=== PATIENT | male | born 1930 | race Caucasian/White ===

== ENCOUNTER 2016-05-27 15:08 | Emergency (ER) | payer OTHER ==
[2016-05-27] MEDS ORDERED: ONDANSETRON HCL IV 4 MG/2 ML VIAL IV ONE (15:56)
[2016-05-27] MEDS ORDERED: HYDROMORPHONE HCL 1 MG/ML CPJ IVP ONE (15:56)
[2016-05-27 16:17] LABS: HEMATOCRIT 39.8 % (42.0-52.0); HEMOGLOBIN 12.5 gm/dl (14.0-18.0); MEAN CELL VOLUME 97.5 fl (81-97); MEAN CORPUSCULAR HEMOGLOBIN 30.6 pg (27-33); MEAN CORPUSCULAR HGB CONC 31.4 g/dl (32-36); MEAN PLATELET VOLUME 10.5 fl (7.4-10.4); PLATELET COUNT 212 K/uL (130-400); RED BLOOD COUNT 4.08 M/uL (4.40-5.70); RED CELL DISTRIBUTION WIDTH 13.4 % (11.5-14.5); WHITE BLOOD COUNT W/O DIFF 4.5 K/uL (4.2-12.2)
[2016-05-27 16:28] LABS: ANION GAP 14.8 (7-16); CARBON DIOXIDE 26.2 mmol/L (22-30); CREATININE 1.6 mg/dL (0.66-1.25)
[2016-05-27 17:05] LABS: URINE APPEARANCE CLEAR; URINE BILIRUBIN NEGATIVE (NEGATIVE); URINE BLOOD TRACE-I (NEGATIVE); URINE COLOR YELLOW; URINE GLUCOSE (UA) NEGATIVE (NEGATIVE); URINE KETONE TRACE (NEGATIVE); URINE LEUKOCYTE ESTERASE NEGATIVE (NEGATIVE); URINE NITRITE NEGATIVE (NEGATIVE); URINE PROTEIN TRACE (NEGATIVE)
[2016-05-27 17:09] LABS: URINE BACTERIA FEW; URINE EPITHELIAL CELLS 0 - 2 (FEW); URINE RBC 0 - 2 (NONE SEEN); URINE WBC 0 - 2 (0-2/hpf)
--- NOTE | 2016-05-27 17:53 | Emergency Department Record ---
History of Present Illness - General Chief Complaint: Abdominal Pain Stated Complaint: stomach pains Time Seen by Provider: 05/27/16 15:52 Source: Patient, Family Mode of Arrival: Ambulatory Limitations: No limitations - History of Present Illness Initial Comments: pt came in with significant abd pain, n/v x 1. pt has a hx of aneurysm repair and remaining aneurysm. MD Complaint: Abdominal pain Onset/Timin -: Days(s) Location: Epigastric, RUQ, RLQ Severity: Severe Quality: Sharp Consistency: Constant Improves With: Nothing Worsens With: Nothing Associated Symptoms: Nausea, Vomiting - Related Data Home Medications Medication Instructions Recorded Confirmed Last Taken Aspirin [Ecotrin] 81 mg PO DAILY 05/27/16 05/27/16 Unknown Losartan Potassium [Cozaar] 50 mg PO DAILY 05/27/16 05/27/16 Unknown Allergies Allergy/AdvReac Type Severity Reaction Status Date / Time No Known Drug Allergies Allergy Verified 05/27/16 15:35 Travel Screening - Travel/Exposure Within Last 30 Days Have you traveled within the last 30 days?: No Review of Systems Reviewed: No additional complaints except as noted below Constitutional: Reports: As per HPI. Denies: Chills, Fever, Malaise, Night sweats, Weakness, Weight change Eyes: Reports: As per HPI. Denies: Eye discharge, Eye pain, Photophobia, Vision change ENT: Reports: As per HPI. Denies: Congestion, Dental pain, Ear pain, Epistaxis , Hearing loss, Throat pain Respiratory: Reports: As per HPI. Denies: Cough, Dyspnea, Hemoptysis, Stridor, Wheezes Cardiovascular: Reports: As per HPI. Denies: Arrhythmia, Chest pain, Dyspnea on exertion, Edema, Murmurs, Orthopnea, Palpitations, Paroxysmal nocturnal dyspnea, Rheumatic Fever, Syncope Endocrine: Reports: As per HPI. Denies: Fatigue, Heat or cold intolerance, Polydipsia, Polyuria Gastrointestinal: Reports: As per HPI. Denies: Abdominal pain, Constipation, Diarrhea, Hematemesis, Hematochezia, Melena, Nausea, Vomiting Genitourinary: Reports: As per HPI. Denies: Dysuria, Frequency, Hematuria, Incontinence, Retention, Testicular pain, Testicular mass, Urgency Musculoskeletal: Reports: As per HPI. Denies: Arthralgia, Back pain, Gout, Joint swelling, Myalgia, Neck pain Skin: Reports: As per HPI. Denies: Bruising, Change in color, Change in hair/ nails, Lesions, Pruritus, Rash Neurological: Reports: As per HPI. Denies: Abnormal gait, Confusion, Headache, Numbness, Paresthesias, Seizure, Tingling, Tremors, Vertigo, Weakness Psychiatric: Reports: As per HPI. Denies: Anxiety, Auditory hallucinations, Depression, Homicidal thoughts, Suicidal thoughts, Visual hallucinations Hematological/Lymphatic: Reports: As per HPI. Denies: Anemia, Blood Clots, Easy bleeding, Easy bruising, Swollen glands Past Medical History - SOCIAL HISTORY Smoking Status: Former smoker Alcohol Use: None Drug Use: None - RESPIRATORY Hx Respiratory Disorders: No - CARDIOVASCULAR Hx Cardio Disorders: Yes Hx Hypertension: Yes - NEURO Hx Neuro Disorders: Yes Hx Dizziness: Yes - GI Hx GI Disorders: Yes Comment:: anuerysm - Hx Genitourinary Disorders: No - ENDOCRINE Hx Endocrine Disorders: No - MUSCULOSKELETAL Hx Musculoskeletal Disorders: Yes - PSYCH Hx Psych Problems: No - HEMATOLOGY/ONCOLOGY Hx Hematology/Oncology Disorders: No Family Medical History Any Significant Family History?: No Physical Exam - General General Appearance: Alert, Oriented x3, Cooperative, Moderate distress - Head Head exam: Normal inspection - Eye Eye exam: Normal appearance, PERRL, EOMI Pupils: Normal accommodation - ENT ENT exam: Normal exam, Mucous membranes moist, Normal external ear exam, Normal orophraynx Ear exam: Normal external inspection. negative: External canal tenderness Nasal Exam: Normal inspection. negative: Discharge, Sinus tenderness Mouth exam: Normal external inspection, Tongue normal Teeth exam: Normal inspection. negative: Dental caries Throat exam: Normal inspection. negative: Tonsillar erythema, Tonsillar exudate - Neck Neck exam: Normal inspection, Full ROM. negative: Tenderness - Respiratory Respiratory exam: Normal lung sounds bilaterally. negative: Respiratory distress - Cardiovascular Cardiovascular Exam: Normal rhythm, Normal heart sounds, Tachycardia - GI/Abdominal GI/Abdominal exam: Soft, Normal bowel sounds. negative: Tenderness - Rectal Rectal exam: Deferred - exam: Deferred - Extremities Extremities exam: Normal inspection, Full ROM, Normal capillary refill. negative: Tenderness - Back Back exam: Reports: Normal inspection, Full ROM. Denies: Muscle spasm, Rash noted, Tenderness - Neurological Neurological exam: Alert, Normal gait, Oriented X3, Reflexes normal - Psychiatric Psychiatric exam: Normal affect, Normal mood - Skin Skin exam: Dry, Intact, Normal color, Warm Course Vital Signs 05/27/16 15:27 Temperature 98.4 F Pulse Rate 125 H Respiratory 32 H Rate Blood Pressure 179/117 Pulse Ox 97 - Reevaluation(s) Reevaluation #1: 05/27/16 18:54 pt feels better 05/27/16 18:54 Medical Decision Making - Lab Data Result diagrams: 05/27/16 15:40 05/27/16 15:40 Lab Results 05/27/16 05/27/16 05/27/16 Range/Units 15:40 15:40 16:30 WBC 4.5 (4.2-12.2) K/uL RBC 4.08 L (4.40-5.70) M/uL Hgb 12.5 L (14.0-18.0) gm/dl Hct 39.8 L (42.0-52.0) % MCV 97.5 H (81-97) fl MCH 30.6 (27-33) pg MCHC 31.4 L (32-36) g/dl RDW 13.4 (11.5-14.5) % Plt Count 212 (130-400) K/uL MPV 10.5 H (7.4-10.4) fl Neutrophils % 94.0 H (47-80) % Lymphocytes % 5.0 L (16-45) % Monocytes % 1.0 (0-9) % Eosinophils % Not Reportable Basophils % Not Reportable Sodium 141 (136-145) mmol/L Potassium 4.3 (3.5-5.1) mmol/L Chloride 100 (98-107) mmol/L Carbon Dioxide 26.2 (22-30) mmol/L Anion Gap 14.8 (7-16) BUN 36 H (9-20) mg/dL Creatinine 1.6 H (0.66-1.25) mg/dL Estimated GFR 44 ml/min Random Glucose 146 H (70-110) mg/dL Lactic Acid 0.9 (0.7-2.1) mmol/L Calcium 9.1 (8.5-10.1) mg/dL Urine Color Urine Appearance Urine pH (5.0-8.0) Ur Specific [place] (1.002-1.030) Urine Protein (NEGATIVE) Urine Glucose (UA) (NEGATIVE) Urine Ketones (NEGATIVE) Urine Blood (NEGATIVE) Urine Nitrite (NEGATIVE) Urine Bilirubin (NEGATIVE) Urine Urobilinogen (0.20 - 1.00) E.U./dL Ur Leukocyte Esterase (NEGATIVE) Urine RBC (NONE SEEN) Urine WBC (0-2/hpf) Ur Epithelial Cells (FEW) Urine Bacteria 05/27/16 Range/Units 16:45 WBC (4.2-12.2) K/uL RBC (4.40-5.70) M/uL Hgb (14.0-18.0) gm/dl Hct (42.0-52.0) % MCV (81-97) fl MCH (27-33) pg MCHC (32-36) g/dl RDW (11.5-14.5) % Plt Count (130-400) K/uL MPV (7.4-10.4) fl Neutrophils % (47-80) % Lymphocytes % (16-45) % Monocytes % (0-9) % Eosinophils % Basophils % Sodium (136-145) mmol/L Potassium (3.5-5.1) mmol/L Chloride (98-107) mmol/L Carbon Dioxide (22-30) mmol/L Anion Gap (7-16) BUN (9-20) mg/dL Creatinine (0.66-1.25) mg/dL Estimated GFR ml/min Random Glucose (70-110) mg/dL Lactic Acid (0.7-2.1) mmol/L Calcium (8.5-10.1) mg/dL Urine Color Yellow Urine Appearance Clear Urine pH 6.0 (5.0-8.0) Ur Specific [place] 1.015 (1.002-1.030) Urine Protein Trace H (NEGATIVE) Urine Glucose (UA) Negative (NEGATIVE) Urine Ketones Trace H (NEGATIVE) Urine Blood Trace-i (NEGATIVE) Urine Nitrite Negative (NEGATIVE) Urine Bilirubin Negative (NEGATIVE) Urine Urobilinogen 1.0 (0.20 - 1.00) E.U./dL Ur Leukocyte Esterase Negative (NEGATIVE) Urine RBC 0 - 2 (NONE SEEN) Urine WBC 0 - 2 (0-2/hpf) Ur Epithelial Cells 0 - 2 (FEW) Urine Bacteria Few Disposition Disposition: Discharge Clinical Impression: Abdominal pain Qualifiers: Abdominal location: generalized Qualified Code(s): R10.84 - Generalized abdominal pain Disposition: Home, Self-Care Condition: (1) Good Instructions: Abdominal Pain (ED) Additional Instructions: follow up with [facility]. call tomorrow. return sooner if worse Forms: Patient Portal Access
[2016-05-27] MEDS ORDERED: SODIUM CHLORIDE 0.9% 500 ML IV ONE (18:20)
--- NOTE | 2016-05-27 19:25 | Emergency Department Record ---
History of Present Illness - General Chief Complaint: Abdominal Pain Stated Complaint: stomach pains Time Seen by Provider: 05/27/16 15:52 Source: Patient, Family Mode of Arrival: Ambulatory Limitations: No limitations - History of Present Illness MD Complaint: Abdominal pain Onset/Timin -: Days(s) Location: Epigastric, RUQ, RLQ Severity: Severe Quality: Sharp Consistency: Constant Improves With: Nothing Worsens With: Nothing Associated Symptoms: Nausea, Vomiting - Related Data Home Medications Medication Instructions Recorded Confirmed Last Taken Aspirin [Ecotrin] 81 mg PO DAILY 05/27/16 05/27/16 Unknown Losartan Potassium [Cozaar] 50 mg PO DAILY 05/27/16 05/27/16 Unknown Allergies Allergy/AdvReac Type Severity Reaction Status Date / Time No Known Drug Allergies Allergy Verified 05/27/16 15:35 Travel Screening - Travel/Exposure Within Last 30 Days Have you traveled within the last 30 days?: No Review of Systems Constitutional: Reports: As per HPI. Denies: Chills, Fever, Malaise, Night sweats, Weakness, Weight change Eyes: Reports: As per HPI. Denies: Eye discharge, Eye pain, Photophobia, Vision change ENT: Reports: As per HPI. Denies: Congestion, Dental pain, Ear pain, Epistaxis , Hearing loss, Throat pain Respiratory: Reports: As per HPI. Denies: Cough, Dyspnea, Hemoptysis, Stridor, Wheezes Cardiovascular: Reports: As per HPI. Denies: Arrhythmia, Chest pain, Dyspnea on exertion, Edema, Murmurs, Orthopnea, Palpitations, Paroxysmal nocturnal dyspnea, Rheumatic Fever, Syncope Endocrine: Reports: As per HPI. Denies: Fatigue, Heat or cold intolerance, Polydipsia, Polyuria Gastrointestinal: Reports: As per HPI. Denies: Abdominal pain, Constipation, Diarrhea, Hematemesis, Hematochezia, Melena, Nausea, Vomiting Genitourinary: Reports: As per HPI. Denies: Dysuria, Frequency, Hematuria, Incontinence, Retention, Testicular pain, Testicular mass, Urgency Musculoskeletal: Reports: As per HPI. Denies: Arthralgia, Back pain, Gout, Joint swelling, Myalgia, Neck pain Skin: Reports: As per HPI. Denies: Bruising, Change in color, Change in hair/ nails, Lesions, Pruritus, Rash Neurological: Reports: As per HPI. Denies: Abnormal gait, Confusion, Headache, Numbness, Paresthesias, Seizure, Tingling, Tremors, Vertigo, Weakness Psychiatric: Reports: As per HPI. Denies: Anxiety, Auditory hallucinations, Depression, Homicidal thoughts, Suicidal thoughts, Visual hallucinations Hematological/Lymphatic: Reports: As per HPI. Denies: Anemia, Blood Clots, Easy bleeding, Easy bruising, Swollen glands Past Medical History - SOCIAL HISTORY Smoking Status: Former smoker Alcohol Use: None Drug Use: None - RESPIRATORY Hx Respiratory Disorders: No - CARDIOVASCULAR Hx Cardio Disorders: Yes Hx Hypertension: Yes - NEURO Hx Neuro Disorders: Yes Hx Dizziness: Yes - GI Hx GI Disorders: Yes Comment:: anuerysm - Hx Genitourinary Disorders: No - ENDOCRINE Hx Endocrine Disorders: No - MUSCULOSKELETAL Hx Musculoskeletal Disorders: Yes - PSYCH Hx Psych Problems: No - HEMATOLOGY/ONCOLOGY Hx Hematology/Oncology Disorders: No Family Medical History Any Significant Family History?: No Physical Exam - General Limitations: No limitations Course Vital Signs 05/27/16 05/27/16 15:27 19:11 Temperature 98.4 F 97.4 F L Pulse Rate 125 H 115 H Respiratory 32 H 20 Rate Blood Pressure 179/117 121/68 Pulse Ox 97 98 - Reevaluation(s) Reevaluation #1: 05/27/16 19:21 contrast was not used since gfr is 44. ct d/w radiologist, no hematoma, no free fluid. pts pain is resolved. improved bp and improved hr. pt recd iv fluids and is drinking fluids. pt wants to go home Medical Decision Making - Lab Data Result diagrams: 05/27/16 15:40 05/27/16 15:40 Lab Results 05/27/16 05/27/16 05/27/16 Range/Units 15:40 15:40 16:30 WBC 4.5 (4.2-12.2) K/uL RBC 4.08 L (4.40-5.70) M/uL Hgb 12.5 L (14.0-18.0) gm/dl Hct 39.8 L (42.0-52.0) % MCV 97.5 H (81-97) fl MCH 30.6 (27-33) pg MCHC 31.4 L (32-36) g/dl RDW 13.4 (11.5-14.5) % Plt Count 212 (130-400) K/uL MPV 10.5 H (7.4-10.4) fl Neutrophils % 94.0 H (47-80) % Lymphocytes % 5.0 L (16-45) % Monocytes % 1.0 (0-9) % Eosinophils % Not Reportable Basophils % Not Reportable Sodium 141 (136-145) mmol/L Potassium 4.3 (3.5-5.1) mmol/L Chloride 100 (98-107) mmol/L Carbon Dioxide 26.2 (22-30) mmol/L Anion Gap 14.8 (7-16) BUN 36 H (9-20) mg/dL Creatinine 1.6 H (0.66-1.25) mg/dL Estimated GFR 44 ml/min Random Glucose 146 H (70-110) mg/dL Lactic Acid 0.9 (0.7-2.1) mmol/L Calcium 9.1 (8.5-10.1) mg/dL Troponin I (0.00-0.034) ng/mL Urine Color Urine Appearance Urine pH (5.0-8.0) Ur Specific [place] (1.002-1.030) Urine Protein (NEGATIVE) Urine Glucose (UA) (NEGATIVE) Urine Ketones (NEGATIVE) Urine Blood (NEGATIVE) Urine Nitrite (NEGATIVE) Urine Bilirubin (NEGATIVE) Urine Urobilinogen (0.20 - 1.00) E.U./dL Ur Leukocyte Esterase (NEGATIVE) Urine RBC (NONE SEEN) Urine WBC (0-2/hpf) Ur Epithelial Cells (FEW) Urine Bacteria 05/27/16 05/27/16 Range/Units 16:30 16:45 WBC (4.2-12.2) K/uL RBC (4.40-5.70) M/uL Hgb (14.0-18.0) gm/dl Hct (42.0-52.0) % MCV (81-97) fl MCH (27-33) pg MCHC (32-36) g/dl RDW (11.5-14.5) % Plt Count (130-400) K/uL MPV (7.4-10.4) fl Neutrophils % (47-80) % Lymphocytes % (16-45) % Monocytes % (0-9) % Eosinophils % Basophils % Sodium (136-145) mmol/L Potassium (3.5-5.1) mmol/L Chloride (98-107) mmol/L Carbon Dioxide (22-30) mmol/L Anion Gap (7-16) BUN (9-20) mg/dL Creatinine (0.66-1.25) mg/dL Estimated GFR ml/min Random Glucose (70-110) mg/dL Lactic Acid (0.7-2.1) mmol/L Calcium (8.5-10.1) mg/dL Troponin I < 0.012 (0.00-0.034) ng/mL Urine Color Yellow Urine Appearance Clear Urine pH 6.0 (5.0-8.0) Ur Specific [place] 1.015 (1.002-1.030) Urine Protein Trace H (NEGATIVE) Urine Glucose (UA) Negative (NEGATIVE) Urine Ketones Trace H (NEGATIVE) Urine Blood Trace-i (NEGATIVE) Urine Nitrite Negative (NEGATIVE) Urine Bilirubin Negative (NEGATIVE) Urine Urobilinogen 1.0 (0.20 - 1.00) E.U./dL Ur Leukocyte Esterase Negative (NEGATIVE) Urine RBC 0 - 2 (NONE SEEN) Urine WBC 0 - 2 (0-2/hpf) Ur Epithelial Cells 0 - 2 (FEW) Urine Bacteria Few Disposition Disposition: Discharge Clinical Impression: Renal insufficiency Abdominal pain Qualifiers: Abdominal location: generalized Qualified Code(s): R10.84 - Generalized abdominal pain Disposition: Home, Self-Care Condition: (1) Good Instructions: Abdominal Pain (ED) Additional Instructions: follow up with [facility]. call tomorrow. return sooner if worse Forms: Patient Portal Access
== END 2016-05-27 19:13 | disposition home or self-care (01) ==
LOC: ER 15:08
DX: N28.9 Disorder of kidney and ureter, unspecified (principal); R10.84 Generalized abdominal pain; R11.2 Nausea with vomiting, unspecified; I10 Essential (primary) hypertension; I71.4 Abdominal aortic aneurysm, without rupture; Z87.891 Personal history of nicotine dependence
CPT/HCPCS: 99283; 96374; 96375; 99284; 83605; 84484; 80048; 81001; 85027; 74176; 93005; 93010; J2405; J1170

== ENCOUNTER 2017-09-22 15:34 | Emergency (ER) | payer OTHER ==
[2017-09-22] MEDS ORDERED: ACETAMINOPHEN 1,000 MG/100 ML BTL IVPB ONE (15:59)
--- NOTE | 2017-09-22 16:06 | Emergency Department Record ---
History of Present Illness - General Chief complaint: Extremity Problem Stated complaint: LT ARM/PAIN AND BLEEDING FROM SURGERY Time Seen by Provider: 09/22/17 15:58 Source: Patient Mode of Arrival: Ambulatory Limitations: No limitations - History of Present Illness Initial comments: 87 yo male presents with left upper arm pain. The patient has ESRD. He has been on dialysis 2 months. He had surgery on Thursday at the [facility] in [place]. His paperwork states he had a left brachiobasilic vein transposition. He states he did not have any significant pain after surgery. Starting at 11am he developed pain in the left upper arm. No distal weakness, numbness, coolness. He noted swelling and bruising of the left upper arm as well. He had HD this morning at 6am. He has a dialysis port in the right subclavian. He can not contacted the number for his surgeon at the [facility] in [place]. No fevers. He had a small amount of blood on his shirt this afternoon. His PCP is in [place] as well as his liquor inspector and surgeon. He has one prior visit to the [facility] ED on the EMR. MD Complaint: Extremity pain, Extremity swelling Onset/Timin -: Days(s) Location: Left, Arm History of Same: No Severity scale (1-10): 10 Quality: Aching, Burning, Sharp Consistency: Constant Improves with: Nothing Worsens with: Exertion, Palpation Associated Symptoms: Denies other symptoms - Related Data Home Medications Medication Instructions Recorded Confirmed Last Taken Atorvastatin Calcium 80 mg PO DAILY 09/22/17 09/22/17 Unknown Carvedilol 25 mg PO BID 09/22/17 09/22/17 Unknown Isosorbide Mononitrate [Imdur] 60 mg PO DAILY 09/22/17 09/22/17 Unknown Nifedipine [Nifedipine ER] 30 mg PO DAILY 09/22/17 09/22/17 Unknown Previous Rx's Medication Instructions Recorded Magnesium Citrate 295 ml PO Q12H PRN #10 solution 09/22/17 Allergies Allergy/AdvReac Type Severity Reaction Status Date / Time No Known Drug Allergies Allergy Verified 05/27/16 15:35 Travel Screening - Travel/Exposure Within Last 30 Days Have you traveled within the last 30 days?: No Review of Systems Constitutional: Denies: Chills, Fever, Weakness Eyes: Denies: Eye discharge ENT: Denies: Congestion, Throat pain Respiratory: Denies: Cough Cardiovascular: Denies: Chest pain, Palpitations, Syncope Endocrine: Denies: Fatigue Gastrointestinal: Denies: Abdominal pain, Diarrhea, Nausea, Vomiting Genitourinary: Denies: Dysuria, Frequency, Hematuria Musculoskeletal: Denies: Arthralgia, Back pain, Myalgia Skin: Denies: Change in color Neurological: Denies: Headache, Numbness, Tingling, Tremors, Weakness Psychiatric: Denies: Anxiety Hematological/Lymphatic: Denies: Blood Clots, Easy bleeding, Easy bruising, Swollen glands Past Medical History - SOCIAL HISTORY Smoking Status: Former smoker - RESPIRATORY Hx Respiratory Disorders: No - CARDIOVASCULAR Hx Cardio Disorders: Yes Hx Hypertension: Yes - NEURO Hx Neuro Disorders: Yes Hx Dizziness: Yes - GI Hx GI Disorders: Yes Comment:: anuerysm - Hx Genitourinary Disorders: No - ENDOCRINE Hx Endocrine Disorders: No - MUSCULOSKELETAL Hx Musculoskeletal Disorders: Yes - PSYCH Hx Psych Problems: No - HEMATOLOGY/ONCOLOGY Hx Hematology/Oncology Disorders: No Family Medical History Any Significant Family History?: No Physical Exam - General General Appearance: Alert, Oriented x3, Cooperative, No acute distress Limitations: No limitations - Head Head exam: Atraumatic, Normal inspection - Eye Eye exam: Normal appearance. negative: Conjunctival injection - ENT ENT exam: Normal exam, Mucous membranes moist Ear exam: Normal external inspection Nasal Exam: Normal inspection Mouth exam: Normal external inspection - Neck Neck exam: Normal inspection, Full ROM. negative: Tenderness - Respiratory Respiratory exam: Normal lung sounds bilaterally. 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 - Neurological Neurological exam: Alert, Oriented X3 - Psychiatric Psychiatric exam: Normal affect, Normal mood - Skin Skin exam: Dry, Intact, Warm, Other (bruising of the upper arm on the left into the axilla.) Course Vital Signs 09/22/17 15:47 Temperature 98.2 F Pulse Rate 87 Respiratory 20 Rate Blood Pressure 174/87 Pulse Ox 97 - Reevaluation(s) Reevaluation #1: 09/22/17 16:30 The patient did not get any relief with the Ofirmev. He has a strong radial pulse, fixed wing aircraft flight engineer, sensation intact. Morphine ordered. 09/22/17 16:43 The labs were reviewed Hgb is 10.9 The Platelets were 106 CR is 3.5 09/22/17 16:57 K is 4.8 Medical Decision Making - Lab Data Result diagrams: 09/22/17 16:11 09/22/17 16:11 Disposition Disposition: Discharge Clinical Impression: Postoperative hematoma Qualifiers: Surgical complication system/body Area: circulatory system Procedure type: circulatory, unspecified Qualified Code(s): I97.638 - Postprocedural hematoma of a circulatory system organ or structure following other circulatory system procedure Disposition: Home, Self-Care Condition: (2) Stable Instructions: Hematoma (ED) Additional Instructions: Return to ED if your symptoms worsen or if you have any concerns. Magnesium Citrate as directed. Follow-up with your vascular surgeon in 1-3 days as directed. Prescriptions: Magnesium Citrate 295 ml PO Q12H PRN #10 solution PRN Reason: Constipation Forms: Patient Portal Access Time of Disposition: 21:00 Quality - Quality Measures Quality Measures: N/A - Blood Pressure Screening Does Patient Have Any of the Following: Active Dx of HTN Blood Pressure Classification: Hypertensive Reading Systolic Measurement: 194 Diastolic Measurement: 102 Screening for High Blood Pressure: Patient Exclusion, Hx of HTN [G9744]
[2017-09-22 16:19] LABS: HEMATOCRIT 35.9 % (42.0-52.0); HEMOGLOBIN 10.9 gm/dl (14.0-18.0); MEAN CELL VOLUME 106.2 fl (81-97); MEAN CORPUSCULAR HEMOGLOBIN 32.2 pg (27-33); MEAN CORPUSCULAR HGB CONC 30.4 g/dl (32-36); MEAN PLATELET VOLUME 10.7 fl (7.4-10.4); PLATELET COUNT 106 K/uL (130-400); RED BLOOD COUNT 3.38 M/uL (4.40-5.70); RED CELL DISTRIBUTION WIDTH 14.7 % (11.5-14.5); WHITE BLOOD COUNT W/O DIFF 8.1 K/uL (4.2-12.2)
[2017-09-22 16:28] LABS: CREATININE 3.5 mg/dL (0.7-1.2)
[2017-09-22] MEDS ORDERED: MORPHINE SULFATE 4MG/ML PREFILLED SYRINGE IVP ONE ×2 (16:30→19:26)
[2017-09-22 16:45] LABS: PARTIAL THROMBOPLASTIN TIME 25.7 SECONDS (24.5-39.1)
--- NOTE | 2017-09-22 19:21 | Emergency Department Record ---
History of Present Illness - General Chief complaint: Extremity Problem Stated complaint: LT ARM/PAIN AND BLEEDING FROM SURGERY Time Seen by Provider: 09/22/17 15:58 Source: Patient Mode of Arrival: Ambulatory Limitations: No limitations - History of Present Illness Onset/Timin -: Days(s) Location: Left, Arm History of Same: No Severity scale (1-10): 10 Quality: Aching, Burning, Sharp Consistency: Constant Improves with: Nothing Worsens with: Exertion, Palpation Associated Symptoms: Denies other symptoms - Related Data Home Medications Medication Instructions Recorded Confirmed Last Taken Atorvastatin Calcium 80 mg PO DAILY 09/22/17 09/22/17 Unknown Carvedilol 25 mg PO BID 09/22/17 09/22/17 Unknown Isosorbide Mononitrate [Imdur] 60 mg PO DAILY 09/22/17 09/22/17 Unknown Nifedipine [Nifedipine ER] 30 mg PO DAILY 09/22/17 09/22/17 Unknown Previous Rx's Medication Instructions Recorded Magnesium Citrate 295 ml PO Q12H PRN #10 solution 09/22/17 Allergies Allergy/AdvReac Type Severity Reaction Status Date / Time No Known Drug Allergies Allergy Verified 05/27/16 15:35 Travel Screening - Travel/Exposure Within Last 30 Days Have you traveled within the last 30 days?: No Review of Systems Constitutional: Denies: Chills, Fever, Weakness Eyes: Denies: Eye discharge ENT: Denies: Congestion, Throat pain Respiratory: Denies: Cough Cardiovascular: Denies: Chest pain, Palpitations, Syncope Endocrine: Denies: Fatigue Gastrointestinal: Denies: Abdominal pain, Diarrhea, Nausea, Vomiting Genitourinary: Denies: Dysuria, Frequency, Hematuria Musculoskeletal: Denies: Arthralgia, Back pain, Myalgia Skin: Denies: Change in color Neurological: Denies: Headache, Numbness, Tingling, Tremors, Weakness Psychiatric: Denies: Anxiety Hematological/Lymphatic: Denies: Blood Clots, Easy bleeding, Easy bruising, Swollen glands Past Medical History - SOCIAL HISTORY Smoking Status: Former smoker - RESPIRATORY Hx Respiratory Disorders: No - CARDIOVASCULAR Hx Cardio Disorders: Yes Hx Hypertension: Yes - NEURO Hx Neuro Disorders: Yes Hx Dizziness: Yes - GI Hx GI Disorders: Yes Comment:: anuerysm - Hx Genitourinary Disorders: No - ENDOCRINE Hx Endocrine Disorders: No - MUSCULOSKELETAL Hx Musculoskeletal Disorders: Yes - PSYCH Hx Psych Problems: No - HEMATOLOGY/ONCOLOGY Hx Hematology/Oncology Disorders: No Family Medical History Any Significant Family History?: No Physical Exam - General Limitations: No limitations Course Vital Signs 09/22/17 15:47 Temperature 98.2 F Pulse Rate 87 Respiratory 20 Rate Blood Pressure 174/87 Pulse Ox 97 - Reevaluation(s) Reevaluation #1: 09/22/17 19:19 US Left Upper Extremity: No DVT present 17 x 6 cm hematoma extending from axilla to elbow No acute bleeding present Re-examination demonstrates a good thrill to the fistula, strong distal radial pulse. vascular surgery was paged for consultation. 09/22/17 19:49 Vascular Surgery re-contacted for consultation. Reevaluation #2: 09/22/17 20:22 Case was discussed with Dr. Farris (on-call vascular surgery), recommends galen wrap and analgesia. Patient has [place] at home, concerned about taking the medication due to constipation previously. Patient does have Dulcolax and Miralax at home, would like magnesium citrate as well if needed. Dr. Farris will arrange for follow-up later this week. Patient and his daughter were updated on all results and the plan of care, no evidence for compartment syndrome of the upper arm or forearm on re-examination as well. Patient has 5/5/ maintenance specialist strength, denies numbness, tingling or weakness symptoms, and has strong distal radial pulse. Will place in galen-wrap with instructions for follow-up. Medical Decision Making - Lab Data Result diagrams: 09/22/17 16:11 09/22/17 16:11 Lab Results 09/22/17 09/22/17 09/22/17 Range/Units 16:11 16:11 16:11 WBC 8.1 (4.2-12.2) K/uL RBC 3.38 L (4.40-5.70) M/uL Hgb 10.9 L (14.0-18.0) gm/dl Hct 35.9 L (42.0-52.0) % MCV 106.2 H (81-97) fl MCH 32.2 (27-33) pg MCHC 30.4 L (32-36) g/dl RDW 14.7 H (11.5-14.5) % Plt Count 106 L (130-400) K/uL MPV 10.7 H (7.4-10.4) fl Neutrophils % 69.0 (47-80) % Eosinophils % Not Reportable Basophils % Not Reportable Lymphocytes 12.0 L (16-45) % Monocytes 12.0 H (0-9) % Eosinophil Count 7.0 H (0-6) % PT 11.0 (9.5-12.1) SECONDS INR 1.0 APTT 25.7 (24.5-39.1) SECONDS Sodium 142 (136-145) mmol/L Potassium 4.8 H (3.4-4.5) mmol/L Chloride 97 L (98-107) mmol/L Carbon Dioxide 29.0 (22-29) mmol/L Anion Gap 16.0 (7-16) BUN 34 H (8-23) mg/dL Creatinine 3.5 H (0.7-1.2) mg/dL Estimated GFR 18 mL/min Random Glucose 100 (74-109) mg/dL Calcium 8.7 L (8.8-10.2) mg/dL Disposition Disposition: Discharge Clinical Impression: Postoperative hematoma Qualifiers: Surgical complication system/body Area: circulatory system Procedure type: circulatory, unspecified Qualified Code(s): I97.638 - Postprocedural hematoma of a circulatory system organ or structure following other circulatory system procedure Disposition: Home, Self-Care Condition: (2) Stable Instructions: Hematoma (ED) Additional Instructions: Return to ED if your symptoms worsen or if you have any concerns. Magnesium Citrate as directed. Follow-up with your vascular surgeon in 1-3 days as directed. Prescriptions: Magnesium Citrate 295 ml PO Q12H PRN #10 solution PRN Reason: Constipation Forms: Patient Portal Access Time of Disposition: 20:28 Quality - Quality Measures Quality Measures: N/A - Blood Pressure Screening Does Patient Have Any of the Following: Active Dx of HTN Blood Pressure Classification: Pre-Hypertensive BP Reading Systolic Measurement: 174 Diastolic Measurement: 87 Screening for High Blood Pressure: Patient Exclusion, Hx of HTN [G9744]
--- NOTE | 2017-09-24 08:24 | US VENOUS DOPPLER REPORT ---
EXAM: LEFT UPPER EXTREMITY VENOUS DOPPLER ULTRASOUND HISTORY: LEFT UPPER EXTREMITY PAIN AND SWELLING. HISTORY OF LEFT UPPER EXTREMITY VASCULAR SURGERY FOR DIALYSIS FISTULA PLACEMENT ON THURSDAY. BRUISING, PAIN, AND SWELLING SINCE AFTER DIALYSIS THIS MORNING. TECHNIQUE: Duplex Doppler evaluation of the left upper extremity deep venous system was performed in the standard fashion. Seth scale, color Doppler, and Duplex Doppler imaging with spectral analysis was performed. FINDINGS: There is a large hematoma within the left arm extending along the course of the basilic vein from the axilla to near the elbow. This measures 16.9 x 5.7 x 5.7 cm. No active bleeding is identified into the hematoma. There is no visible pseudoaneurysm. The external iliac vein, subclavian vein, axillary vein, brachial veins, and basilic vein demonstrate normal flow, phasicity, and compression. There is no evidence for deep venous thrombosis within the left upper extremity. The forearm veins are suboptimally visualized. IMPRESSION: 1. SUBOPTIMAL VISUALIZATION OF THE FOREARM VEINS. 2. LARGE HEMATOMA WITHIN THE LEFT UPPER ARM MEASURING APPROXIMATELY 16.9 X 5.7 X 5.7 CM. NO ACTIVE BLEEDING IS IDENTIFIED INTO THE HEMATOMA. 3. NO EVIDENCE FOR DVT. JOB NUMBER: [id number] [facility]
== END 2017-09-22 20:47 | disposition home or self-care (01) ==
LOC: ER 15:34
DX: I97.638 Postprocedural hematoma of a circulatory system organ or structure following other circulatory system procedure (principal); N18.6 End stage renal disease; Z87.891 Personal history of nicotine dependence; I10 Essential (primary) hypertension
CPT/HCPCS: 99284 ×2; 96376; 96365; 96375; 85730; 85610; 80048; 85027; 93971; J2274

== ENCOUNTER 2018-05-27 12:53 | Emergency (ER) | payer OTHER ==
[2018-05-27] MEDS ORDERED: IPRATROPIUM/ALBUTEROL (0.5MG/3MG) NEB INH ONE (13:20)
--- NOTE | 2018-05-27 13:24 | Emergency Department Record ---
History of Present Illness - General Chief Complaint: Shortness of breath Stated Complaint: WHEEZING AND PRODUCTIVE COUGH Time Seen by Provider: 05/27/18 13:07 Source: Patient Mode of Arrival: Ambulatory Limitations: No limitations - History of Present Illness Initial Comments: The patient is here due to a one month hx of a cough, congestion, clear sputum and wheezing. He denies any CP, fever, chills, or colored sputum. The patient has a hx of renal failure and is on dialysis 3 times a week and did have a full run this AM. He does have a hx of COPD and does have an inhaller at home. MD Complaint: Cough, Shortness of breath Onset/Timin -: Month(s) Improves With: Bronchodilators Associated Symptoms: Cough - Related Data Previous Rx's Medication Instructions Recorded Albuterol Sulfate [Proair Hfa] 2 puff IH QID PRN #1 inhaler 05/27/18 Doxycycline Monohydrate [Mondoxyne 100 mg PO BID 7 Days #14 capsule 05/27/18 Nl] Prednisone [Prednisone 20Mg] 40 mg PO DAILY #10 tab 05/27/18 Allergies Allergy/AdvReac Type Severity Reaction Status Date / Time No Known Drug Allergies Allergy Verified 05/27/18 13:07 Travel Screening - Travel/Exposure Within Last 30 Days Have you traveled within the last 30 days?: No - Travel/Exposure Within Last Year Have you traveled outside the [place] in the last year?: No - Additonal Travel Details Have you been exposed to anyone with a communicable illness?: No - Travel Symptoms Symptom Screening: None Review of Systems Constitutional: Denies: Chills, Fever ENT: Reports: Congestion Respiratory: Reports: Cough, Dyspnea, Wheezes. Denies: Hemoptysis, Stridor Cardiovascular: Denies: Arrhythmia, Chest pain Endocrine: Denies: Fatigue Gastrointestinal: Denies: Nausea Genitourinary: Denies: Dysuria Musculoskeletal: Denies: Back pain Skin: Denies: Bruising Past Medical History - SOCIAL HISTORY Smoking Status: Former smoker Alcohol Use: Occasional Drug Use: None - RESPIRATORY Hx Respiratory Disorders: No - CARDIOVASCULAR Hx Cardio Disorders: Yes Hx Hypertension: Yes Comment:: cholesterol - NEURO Hx Neuro Disorders: Yes Hx Dizziness: Yes - GI Hx GI Disorders: Yes Comment:: anuerysm - Hx Genitourinary Disorders: No - ENDOCRINE Hx Endocrine Disorders: No - MUSCULOSKELETAL Hx Musculoskeletal Disorders: Yes - PSYCH Hx Psych Problems: No - HEMATOLOGY/ONCOLOGY Hx Hematology/Oncology Disorders: No Family Medical History Any Significant Family History?: No Physical Exam - General General Appearance: Alert, Oriented x3, Cooperative, No acute distress - Head Head exam: Atraumatic, Normocephalic, Normal inspection - Eye Eye exam: Normal appearance, PERRL, EOMI - ENT Throat exam: Normal inspection. negative: Tonsillar erythema, Tonsillar exudate - Neck Neck exam: Normal inspection, Full ROM. negative: Tenderness - Respiratory Respiratory exam: Wheezes (in all [place].). negative: Normal lung sounds bilaterally (The patient is speaking in full sentences with no difficulty.), Accessory muscle use, Decreased breath sounds, Prolonged expiratory, Respiratory distress, Rhonchi - Cardiovascular Cardiovascular Exam: Regular rate, Normal rhythm, Normal heart sounds - GI/Abdominal GI/Abdominal exam: Soft, Normal bowel sounds. negative: Tenderness - Back Back exam: Reports: Normal inspection - Neurological Neurological exam: Alert, Normal gait. negative: Abnormal gait, Motor sensory deficit Course Vital Signs 05/27/18 13:00 Temperature 97.9 F Pulse Rate 79 Respiratory 18 Rate Blood Pressure 161/74 Pulse Ox 99 - Reevaluation(s) Reevaluation #1: The patient is feeling better at this time. He stated the neb tx helped his cough and wheezing and he is feeling much better. The patient's RA biox is 98% and on exam his lungs are more clear with only very faint end expiratory wheezes at the bases. We will discharge him with Doxycycline and Prednisone and he is to see his PCP next week for recheck. 05/27/18 14:46 Medical Decision Making - Data Complexity MDM Data: Labs Ordered and/or Reviewed, X-Ray Ordered and/or Reviewed - Lab Data Result diagrams: 05/27/18 13:37 05/27/18 13:37 - Radiology Data Radiology results: Report reviewed (CXR: No acute changes.) Disposition Disposition: Discharge Clinical Impression: Acute asthmatic bronchitis Disposition: Home, Self-Care Condition: (2) Stable Instructions: Acute Bronchitis (ED), Bronchospasm (ED) Additional Instructions: Please take the Albuterol as directed and also take the Doxycycline and Prednisone as directed. Please see your family doctor next week for recheck. Return to the ER for any worsening symptoms. Prescriptions: Albuterol Sulfate [Proair Hfa] 2 puff IH QID PRN #1 inhaler PRN Reason: Cough And Difficulty Breathing Doxycycline Monohydrate [Mondoxyne Nl] 100 mg PO BID 7 Days #14 capsule Prednisone [Prednisone 20Mg] 40 mg PO DAILY #10 tab Forms: Patient Portal Access Time of Disposition: 14:50 Quality - Quality Measures Quality Measures: N/A - Blood Pressure Screening View Details: Yes Does Patient Have Any of the Following: No Blood Pressure Classification: Normal BP Reading Systolic Measurement: 115 Diastolic Measurement: 65 Screening for High Blood Pressure: < Normal BP, F/U Not Required > [G8783]
[2018-05-27 13:42] LABS: HEMATOCRIT 35.2 % (42.0-52.0); MEAN CELL VOLUME 106.7 fl (81-97); MEAN CORPUSCULAR HEMOGLOBIN 33.3 pg (27-33); MEAN CORPUSCULAR HGB CONC 31.3 g/dl (32-36); MEAN PLATELET VOLUME 10.2 fl (7.4-10.4); PLATELET COUNT 118 K/uL (130-400); RED CELL DISTRIBUTION WIDTH 12.5 % (11.5-14.5); WHITE BLOOD COUNT W/O DIFF 4.3 K/uL (4.2-12.2)
[2018-05-27 13:49] LABS: PLATELET ESTIMATE NORMAL (NORMAL)
[2018-05-27 14:11] LABS: BILIRUBIN,TOTAL 0.5 mg/dL (0.2-1.0); CREATININE 1.9 mg/dL (0.7-1.2)
[2018-05-27 14:12] LABS: TOTAL PROTEIN 6.9 g/dL (6.6-8.7)
[2018-05-27 14:16] LABS: ALB/GLOB RATIO 1.6 (1.1-1.8); ALBUMIN 4.2 g/dL (4.0-5.0)
--- NOTE | 2018-05-30 20:58 | RADIOLOGY REPORT ---
EXAM: CHEST 2 VIEWS HISTORY: WHEEZING AND CONGESTION. PRODUCTIVE COUGH. CHRONIC KIDNEY DISEASE, ON DIALYSIS. TECHNIQUE: Upright PA and lateral views of the chest. COMPARISON: None. FINDINGS: The heart projects mildly enlarged without pulmonary venous hypertension. The thoracic aorta is tortuous and atherosclerotic. On the lateral view, there is a small nodular density projecting at the anterior lung base level consistent with a vessel on end or calcified granuloma. The lungs and pleural spaces are otherwise clear. There are degenerative changes scattered throughout the visualized spine. Surgical clips are noted in the upper abdomen. IMPRESSION: 1. MILD CARDIOMEGALY WITHOUT PULMONARY VENOUS HYPERTENSION. TORTUOUS ATHEROSCLEROTIC THORACIC AORTA. 2. NO EVIDENCE OF AN ACUTE PULMONARY PROCESS. JOB NUMBER: [id number] [facility]
== END 2018-05-27 15:02 | disposition home or self-care (01) ==
LOC: ER 12:53
DX: J45.901 Unspecified asthma with (acute) exacerbation (principal); R06.02 Shortness of breath; I10 Essential (primary) hypertension; Z87.891 Personal history of nicotine dependence
CPT/HCPCS: 71046; 80053; 84145; 85027; 99283; 99284

== ENCOUNTER 2018-06-08 03:43 | Emergency (ER) | payer OTHER ==
[2018-06-08] MEDS ORDERED: METHYLPREDNISOLONE PF 125MG/VIAL IVP ONE (03:53)
[2018-06-08] MEDS ORDERED: IPRATROPIUM/ALBUTEROL (0.5MG/3MG) NEB INH ONE (03:53)
--- NOTE | 2018-06-08 04:00 | Emergency Department Record ---
History of Present Illness - General Chief Complaint: Shortness of breath Stated Complaint: CANT BREATHE Time Seen by Provider: 06/08/18 03:51 Source: Patient Mode of Arrival: Ambulatory Limitations: No limitations - History of Present Illness Initial Comments: 87 yo male presents with increasing shortness of breath and cough for over a week. He states he was seen in the ER about a week ago. He states his symptoms have progressively worsened. His room air oxygen level on arrival was 87%. He has some productive sputum. No fevers this week. 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 He was seen in the ED on 05/27/18. He saw his PCP on Thursday and his breathing was near normal. His PCP and [facility] are in [place] the [place]. He is due for his dialysis at 6am to day. He denies chest pain, fever , blood in sputum. MD Complaint: Cough, Shortness of breath -: Week(s) Severity: Moderate Quality: Other Consistency: Constant Improves With: Nothing Worsens With: Coughing Known History Of: COPD Context: Recent URI Associated Symptoms: Denies other symptoms, Cough Treatments Prior to Arrival: None - Related Data Previous Rx's Medication Instructions Recorded Doxycycline Monohydrate [Mondoxyne 100 mg PO BID 7 Days #14 capsule 05/27/18 Nl] Prednisone [Prednisone 20Mg] 40 mg PO DAILY #10 tab 05/27/18 Albuterol Sulfate [Proair Hfa] 2 puff IH QID PRN #1 inhaler 06/08/18 Prednisone [Prednisone 20Mg] 20 mg PO BID #10 tab 06/08/18 Allergies Allergy/AdvReac Type Severity Reaction Status Date / Time No Known Drug Allergies Allergy Verified 06/08/18 03:59 Review of Systems Constitutional: Denies: Chills, Fever, Malaise, Weakness Eyes: Denies: Eye discharge, Eye pain, Photophobia, Vision change ENT: Denies: Congestion, Throat pain Respiratory: Reports: Cough, Dyspnea, Wheezes Cardiovascular: Reports: Edema (chronic stable unchanged). Denies: Chest pain, Palpitations, Syncope Endocrine: Denies: Fatigue Gastrointestinal: Denies: Abdominal pain, Diarrhea, Nausea, Vomiting Genitourinary: Denies: Dysuria, Frequency, Hematuria Musculoskeletal: Denies: Arthralgia, Back pain, Joint swelling, Myalgia Skin: Denies: Bruising, Change in color, Rash Neurological: Denies: Headache Psychiatric: Denies: Anxiety Hematological/Lymphatic: Denies: Easy bleeding, Easy bruising, Swollen glands Past Medical History - SOCIAL HISTORY Smoking Status: Former smoker Drug Use: None - RESPIRATORY Hx Respiratory Disorders: No - CARDIOVASCULAR Hx Cardio Disorders: Yes Hx Hypertension: Yes Comment:: cholesterol - NEURO Hx Neuro Disorders: Yes Hx Dizziness: Yes - GI Hx GI Disorders: Yes Comment:: anuerysm - Hx Genitourinary Disorders: No - ENDOCRINE Hx Endocrine Disorders: No - MUSCULOSKELETAL Hx Musculoskeletal Disorders: Yes - PSYCH Hx Psych Problems: No - HEMATOLOGY/ONCOLOGY Hx Hematology/Oncology Disorders: No Physical Exam - General General Appearance: Alert, Oriented x3, Cooperative, No acute distress Limitations: No limitations - Head Head exam: Atraumatic, Normal inspection - Eye Eye exam: Normal appearance. negative: Conjunctival injection, Scleral icterus - ENT ENT exam: Normal exam, Mucous membranes moist Ear exam: Normal external inspection Nasal Exam: Normal inspection Mouth exam: Normal external inspection Teeth exam: Normal inspection - Neck Neck exam: Normal inspection, Full ROM. negative: Lymphadenopathy - Respiratory Respiratory exam: Accessory muscle use, Decreased breath sounds, Prolonged expiratory, Wheezes. negative: Normal lung sounds bilaterally, Respiratory distress - Cardiovascular Cardiovascular Exam: Regular rate, Normal rhythm, Normal heart sounds Peripheral Pulses: 2+: Radial (R), Radial (L) - GI/Abdominal GI/Abdominal exam: Soft. negative: Tenderness - Rectal Rectal exam: Deferred - exam: Deferred - Extremities Extremities exam: Normal inspection, Pedal edema (+1 bilateral, symmetric). negative: Tenderness - Back Back exam: Denies: CVA tenderness (R), CVA tenderness (L) - Neurological Neurological exam: Alert, Oriented X3 - Psychiatric Psychiatric exam: Normal affect, Normal mood - Skin Skin exam: Dry, Intact, Normal color, Warm Course - Reevaluation(s) Reevaluation #1: EKG 03:47 Sinus rhythm rate is 89, intervals Qtc 495, QRS is 146 CW RBBB, axis Normal, ST CW RBBB. No changes from the prior 06/08/18 03:57 06/08/18 04:06 After one Duoneb the patient now has clear lungs without wheezing. He is 98% on room air. He states he only uses his inhaler 4 times a day and he was not due. His breathing is very relaxed and non labored after the Duoneb. Much improved air exchange with clear lungs. 06/08/18 04:08 06/08/18 04:40 The CBC and CMP were reviewed The K is 4.8 The CR is 3.7 The BUN is 55 06/08/18 05:00 The patient performed an ambulatory trial without shortness of breath or wheezing. His oxygen saturation remained 96%-97%. I explained the troponin is elevated in the indeterminate range. I explained that this could be from his chronic renal failure but his heart is not ruled out. 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 He declined. His breathing is at his baseline and he wants to be DC to HD. I explained the risks of this decision. I explained I can not guarantee that the indeterminate troponin is from his chronic renal insufficiency and not from his heart. He understands and agrees to a second troponin. 06/08/18 05:07 The repeat troponin did not increase. It decreased to 0.024 but remains indeterminate. I again discussed that leaving has risks and my offer to transfer him to his doctors at the [facility]. He again declined. I discussed given the risks he would need to sign out AMA recognizing our discussion of the risks of leaving. He agrees to this plan. He was additionally made aware that he could return at anytime for evaluation or assistance with transfer if needed. 06/08/18 06:22 06/08/18 06:31 No wheezing or shortness of breath at DC I again reassured him he could return at any point for reassessment Medical Decision Making - Lab Data Result diagrams: 06/08/18 04:00 06/08/18 04:00 Disposition Disposition: Discharge Clinical Impression: Acute asthmatic bronchitis, Renal insufficiency Disposition: Against Medical Advice Condition: (2) Stable Instructions: Dyspnea (ED) Additional Instructions: Return to the ER or be seen if ago become short of breath, any fever or chest pain Call your doctor today for close follow up Go to your dialysis today as directed You may use you inhaler 2 puffs every 4 hours if needed Take the Prednisone as directed the next 5 days Prescriptions: Albuterol Sulfate [Proair Hfa] 2 puff IH QID PRN #1 inhaler PRN Reason: Cough And Difficulty Breathing Prednisone [Prednisone 20Mg] 20 mg PO BID #10 tab Forms: Patient Portal Access Time of Disposition: 06:29 Quality - Quality Measures Quality Measures: N/A - Blood Pressure Screening Does Patient Have Any of the Following: Active Dx of HTN Blood Pressure Classification: Hypertensive Reading Systolic Measurement: 136 Diastolic Measurement: 108 Screening for High Blood Pressure: Patient Exclusion, Hx of HTN [G9744]
[2018-06-08 04:09] LABS: HEMATOCRIT 39.8 % (42.0-52.0); HEMOGLOBIN 12.3 gm/dl (14.0-18.0); MEAN CELL VOLUME 105.6 fl (81-97); MEAN CORPUSCULAR HEMOGLOBIN 32.6 pg (27-33); MEAN CORPUSCULAR HGB CONC 30.9 g/dl (32-36); MEAN PLATELET VOLUME 10.2 fl (7.4-10.4); PLATELET COUNT 152 K/uL (130-400); RED BLOOD COUNT 3.77 M/uL (4.40-5.70); RED CELL DISTRIBUTION WIDTH 12.9 % (11.5-14.5); WHITE BLOOD COUNT W/O DIFF 6.7 K/uL (4.2-12.2)
[2018-06-08 04:17] LABS: BILIRUBIN,TOTAL 0.4 mg/dL (0.2-1.0); CREATININE 3.7 mg/dL (0.7-1.2)
[2018-06-08 04:20] LABS: INR 1.1; PARTIAL THROMBOPLASTIN TIME 26.2 SECONDS (24.5-39.1); PROTHROMBIN TIME (PATIENT) 10.7 SECONDS (9.5-12.1)
[2018-06-08 04:23] LABS: ALB/GLOB RATIO 1.4 (1.1-1.8); ALBUMIN 4.1 g/dL (4.0-5.0)
[2018-06-08 04:40] LABS: PLATELET ESTIMATE NORMAL (NORMAL)
--- NOTE | 2018-06-10 06:20 | RADIOLOGY REPORT ---
EXAM: CHEST HISTORY: UNPRODUCTIVE COUGH AND SHORTNESS OF BREATH. TECHNIQUE: Two views of the chest were obtained. Comparison: 05/27/18. FINDINGS: The heart is not enlarged and there is no mediastinal mass. The thoracic aorta is tortuous. There is no acute infiltrate or vascular congestion. There are some chronic interstitial lung changes. Arthritic changes are present in the thoracic spine. IMPRESSION: 1. NO ACUTE CARDIAC OR PULMONARY ABNORMALITY. 2. CHRONIC INTERSTITIAL CHANGES. 3. TORTUOUS ATHEROSCLEROTIC THORACIC AORTA. JOB NUMBER: [id number] [facility]
== END 2018-06-08 06:41 | disposition left against medical advice (07) ==
LOC: ER 03:43
DX: J45.909 Unspecified asthma, uncomplicated (principal); N18.6 End stage renal disease; R06.02 Shortness of breath; R05 Cough; J44.9 Chronic obstructive pulmonary disease, unspecified; I10 Essential (primary) hypertension; Z99.2 Dependence on renal dialysis; Z87.891 Personal history of nicotine dependence
CPT/HCPCS: 71046; 80053; 84484; 85027; 85610; 85730; 93005; 93010; 94640; 96374; 99284; J2930

== ENCOUNTER 2018-06-28 06:03 | Emergency (ER) | payer OTHER ==
--- NOTE | 2018-06-28 06:16 | Emergency Department Record ---
History of Present Illness - General Chief complaint: Rash Stated complaint: CHEST PAIN Time Seen by Provider: 06/28/18 06:10 Source: Patient Mode of Arrival: Ambulatory Limitations: No limitations - History of Present Illness Initial comments: 87 yo male presents with a painful and itchy rash to the left chest that wraps around to the back. No fevers, chills, cough, or shortness of breath. The rash is very sensitive to the touch. His cloths even cause pain. He did have the shingles vaccine. [facility] He has follow up on Thursday. MD complaint: Rash -: Days(s) Location: Chest Severity: Moderate Quality: Aching, Sharp, Stabbing Consistency: Constant Improves with: None Worsens with: Palpation, Movement Context: Other (Painful rash) Associated symptoms: Itching - Related Data Previous Rx's Medication Instructions Recorded Albuterol Sulfate [Proair Hfa] 2 puff IH QID PRN #1 inhaler 06/08/18 Famciclovir 500 mg PO BID #14 tablet 06/28/18 Lidocaine [Lidoderm] 1 each TP Q12H #10 adh..patch 06/28/18 Allergies Allergy/AdvReac Type Severity Reaction Status Date / Time No Known Drug Allergies Allergy Verified 06/08/18 03:59 Review of Systems Constitutional: Denies: Chills, Fever, Malaise, Weakness Eyes: Denies: Eye discharge ENT: Denies: Congestion, Throat pain Respiratory: Denies: Cough, Dyspnea, Hemoptysis, Wheezes Cardiovascular: Reports: Chest pain. Denies: Palpitations, Syncope Endocrine: Denies: Fatigue Gastrointestinal: Denies: Abdominal pain, Diarrhea, Nausea, Vomiting Genitourinary: Denies: Dysuria, Frequency Musculoskeletal: Reports: Back pain Skin: Reports: Change in color, Rash Neurological: Denies: Confusion, Numbness, Weakness Psychiatric: Denies: Anxiety Hematological/Lymphatic: Denies: Blood Clots, Easy bleeding, Easy bruising Past Medical History - SOCIAL HISTORY Smoking Status: Former smoker Drug Use: None - RESPIRATORY Hx Respiratory Disorders: No - CARDIOVASCULAR Hx Cardio Disorders: Yes Hx Hypertension: Yes Comment:: cholesterol - NEURO Hx Neuro Disorders: Yes Hx Dizziness: Yes - GI Hx GI Disorders: Yes Comment:: anuerysm - Hx Genitourinary Disorders: No - ENDOCRINE Hx Endocrine Disorders: No - MUSCULOSKELETAL Hx Musculoskeletal Disorders: Yes - PSYCH Hx Psych Problems: No - HEMATOLOGY/ONCOLOGY Hx Hematology/Oncology Disorders: No Physical Exam - General General Appearance: Alert, Oriented x3, Cooperative, No acute distress Limitations: No limitations - Head Head exam: Atraumatic - Eye Eye exam: Normal appearance. negative: Conjunctival injection - ENT ENT exam: Normal exam Ear exam: Normal external inspection Nasal Exam: Normal inspection Mouth exam: Normal external inspection - Neck Neck exam: Normal inspection - Respiratory Respiratory exam: Normal lung sounds bilaterally, Chest wall tenderness (tender along the path of an erythematous rash with blisters and some crusting). negative: Wheezes - Cardiovascular Cardiovascular Exam: Regular rate, Normal rhythm, Normal heart sounds - GI/Abdominal GI/Abdominal exam: Soft - Rectal Rectal exam: Deferred - exam: Deferred - Extremities Extremities exam: Normal inspection - Back Back exam: Reports: CVA tenderness (L) (along the rash) Image of Body Front/Back: 1 - erythematous blistering scabbed painful, tender rash 2 - same - Neurological Neurological exam: Alert, Oriented X3 - Psychiatric Psychiatric exam: Normal affect, Normal mood. negative: Agitated, Anxious - Skin Skin exam: Erythema, Vesicles Type of lesion: Rash Distribution of rash: Chest Course - Reevaluation(s) Reevaluation #1: The rash is consistent with shingles The patient has followup on Thursday He will be started on antiviral therapy 06/28/18 06:19 Disposition Disposition: Discharge Clinical Impression: Shingles Disposition: Home, Self-Care Condition: (1) Good Instructions: Shingles (ED) Additional Instructions: Follow up as scheduled with your doctor this week No driving within 8 hours of taking a [place] Return to the ER for a recheck if worse, any new concerns or questions Take the prescriptions provided as directed Review this ER visit and the tests performed with your family doctor Prescriptions: Famciclovir 500 mg PO BID #14 tablet Lidocaine [Lidoderm] 1 each TP Q12H #10 adh..patch Forms: Patient Portal Access Time of Disposition: 06:27 Quality - Quality Measures Quality Measures: N/A - Blood Pressure Screening Does Patient Have Any of the Following: Active Dx of HTN Blood Pressure Classification: Pre-Hypertensive BP Reading Systolic Measurement: 159 Diastolic Measurement: 89 Screening for High Blood Pressure: Patient Exclusion, Hx of HTN [[id number]]
[2018-06-28] MEDS ORDERED: LIDOCAINE 5% PATCH TOP ONE ×2 (06:20→06:26)
[2018-06-28] MEDS ORDERED: IPRATROPIUM/ALBUTEROL (0.5MG/3MG) NEB INH ONE (06:32)
== END 2018-06-28 07:10 | disposition home or self-care (01) ==
LOC: ER 06:03
DX: B02.9 Zoster without complications (principal); R07.81 Pleurodynia; I10 Essential (primary) hypertension; Z87.891 Personal history of nicotine dependence
CPT/HCPCS: 94640; 99283